=== PATIENT | male | born 1975 | race Caucasian/White ===

== ENCOUNTER 2017-08-22 11:03 | Inpatient (IN) | payer OTHER ==
[~2017-08-22] VITALS: Ht 175.3 cm; Wt 75.8 kg
[2017-08-22 11:59] LABS: BASOPHILS ABSOLUTE AUTO 0.06 K/mm3 (0.00-0.23); BASOPHILS PERCENT AUTO 0 % (0-2); EOSINOPHILS ABSOLUTE AUTO 0.01 K/mm3 (0.00-0.68); EOSINOPHILS PERCENT AUTO 0 % (0-6); Hematocrit 42.7 % (37.0-53.0); Hemoglobin 14.5 g/dL (13.5-17.5); IMMATURE GRAN ABSOLUTE AUTO 0.08 K/mm3 (0.00-0.10); IMMATURE GRAN PERCENT AUTO 1 % (0-1); LYMPHOCYTES ABSOLUTE AUTO 1.48 K/mm3 (0.84-5.20); LYMPHOCYTES PERCENT AUTO 9 % (21-46); MONOCYTES ABSOLUTE AUTO 1.34 K/mm3 (0.16-1.47); MONOCYTES PERCENT AUTO 8 % (4-13); Mean Corpuscular Volume 91 fL (80-100); Mean Platelet Volume 9.7 fL (9.1-12.4); NEUTROPHILS PERCENT AUTO 83 % (41-73); Platelet Count 392 K/mm3 (150-400); RDW Coefficient Variation 12.5 % (11.7-14.2); RDW Standard Deviation 42.1 fL (35.1-46.3); Red Blood Cell Count 4.67 M/mm3 (4.30-5.90); White Blood Cell Count 17.37 K/mm3 (4.00-11.30)
[2017-08-22 12:27] LABS: Alanine Aminotransfer (ALT/SGP 17 U/L (12-78); Albumin, Blood 3.9 g/dL (3.4-5.0); Alk Phos 62 U/L (50-136); Anion Gap 7 mmol/L (6-16); Aspartate Aminotrans (AST/SGOT 11 U/L (12-37); Bilirubin, Total 0.6 mg/dL (0.1-1.0); Blood Urea Nitrogen 22 mg/dL (8-24); Bun/Creatinine Ratio 21.8 (12.0-20.0); CO2, Blood 27 mmol/L (21-32); Calcium, Blood 8.9 mg/dL (8.5-10.1); Chloride, Blood 100 mmol/L (98-108); Creatinine, Blood 1.01 mg/dL (0.60-1.20); Ethanol (Alcohol), Blood, Med <3 mg/dL; Globulin, Blood 3.9 g/dL (2.2-4.0); Glomerular Filtration Rate >60 (60-); Glucose, Blood 316 mg/dL (70-99); Potassium, Blood 4.3 mmol/L (3.5-5.5); Sodium, Blood 134 mmol/L (136-145); Total Protein, Blood 7.8 g/dL (6.4-8.2)
[2017-08-22 12:31] LABS: U Amphetamine Screen Not Detected; U Barbituate Screen Not Detected; U Benzodiazapine Screen Not Detected; U Buprenorphine Screen Not Detected; U Cannabinoids Screen Not Detected; U Cocaine Screen Not Detected; U Methadone Screen Not Detected; U Methamphetamine Screen Not Detected; U Opiates Screen Not Detected; U Oxycodone Screen Not Detected; U Phencyclidine Screen Not Detected; U Propoxyphene Screen Not Detected
[2017-08-22 14:36] LABS: Glucose, CSF 103 mg/dL (40-70)
[2017-08-22 15:07] LABS: RBC Count, CSF 258 /mm3 (0-0)
[2017-08-22 15:14] LABS: WBC Count, CSF 6 /mm3 (0-5)
[2017-08-22 15:16] LABS: Appearance, CSF Clear (Clear); Color, CSF No Color (No Color); RBC Count, CSF 0 /mm3 (0-0)
[2017-08-22 15:17] LABS: Appearance, CSF Clear (Clear); Color, CSF Red (No Color); WBC Count, CSF 0 /mm3 (0-5)
[2017-08-22 15:36] LABS: Lymphocytes, CSF 95 % (40-80); Monocytes, CSF 4 % (15-45); Neutrophils, CSF 1 % (0-6)
[2017-08-22] MEDS ORDERED: Novolin R100 UNIT/M SC (16:08)
[2017-08-22] MEDS ORDERED: Humulin N100 UNIT/1 (16:09)
[2017-08-22 20:07] LABS: Source, Urine Clean Catch
[2017-08-22 20:15] LABS: Bilirubin, Urine Neg (Neg); Blood, Urine Neg (Neg); Glucose Qualitative, Urine 4+ (Neg); Ketones, Urine 3+ (Neg); Leukocyte Esterase, Urine Neg (Neg); Nitrite, Urine Neg (Neg); Protein, Urine Neg (Neg); Specific Gravity, Urine 1.015 (1.003-1.022); Urobilinogen, Urine NORM (Normal)
[2017-08-22 20:20] LABS: Appearance, Urine Clear (Clear); Color, Urine Yellow (P-Yellow)
[2017-08-22 22:09] LABS: Glucose, Blood 620 mg/dL (70-99)
[2017-08-23 05:17] LABS: BASOPHILS ABSOLUTE AUTO 0.11 K/mm3 (0.00-0.23); BASOPHILS PERCENT AUTO 1 % (0-2); EOSINOPHILS PERCENT AUTO 1 % (0-6); Hematocrit 42.4 % (37.0-53.0); Hemoglobin 14.2 g/dL (13.5-17.5); IMMATURE GRAN ABSOLUTE AUTO 0.08 K/mm3 (0.00-0.10); IMMATURE GRAN PERCENT AUTO 1 % (0-1); LYMPHOCYTES ABSOLUTE AUTO 2.49 K/mm3 (0.84-5.20); LYMPHOCYTES PERCENT AUTO 17 % (21-46); MONOCYTES ABSOLUTE AUTO 1.48 K/mm3 (0.16-1.47); MONOCYTES PERCENT AUTO 10 % (4-13); Mean Corpuscular HGB 30.5 pg (26.0-34.0); Mean Corpuscular HGB Conc 33.5 g/dL (31.5-36.5); Mean Corpuscular Volume 91 fL (80-100); Mean Platelet Volume 9.7 fL (9.1-12.4); NEUTROPHILS ABSOLUTE AUTO 10.41 K/mm3 (1.96-9.15); NEUTROPHILS PERCENT AUTO 71 % (41-73); Platelet Count 391 K/mm3 (150-400); RDW Coefficient Variation 12.6 % (11.7-14.2); Red Blood Cell Count 4.65 M/mm3 (4.30-5.90); White Blood Cell Count 14.67 K/mm3 (4.00-11.30)
[2017-08-23 05:36] LABS: Anion Gap 13 mmol/L (6-16); Blood Urea Nitrogen 23 mg/dL (8-24); Bun/Creatinine Ratio 21.9 (12.0-20.0); CO2, Blood 19 mmol/L (21-32); Calcium, Blood 8.5 mg/dL (8.5-10.1); Chloride, Blood 100 mmol/L (98-108); Creatinine, Blood 1.05 mg/dL (0.60-1.20); Glomerular Filtration Rate >60 (60-); Glucose, Blood 345 mg/dL (70-99); Potassium, Blood 4.8 mmol/L (3.5-5.5); Sodium, Blood 132 mmol/L (136-145)
== END 2017-08-23 16:01 | disposition left against medical advice (07) | DRG 98 ==
LOC: ER 11:03 → MEDS 17:10
PROVIDERS: Emergency Medicine; Internal Medicine; Nurse Practitioner Acute Care; Physician Assistant
DX: G04.90 Encephalitis and encephalomyelitis, unspecified (principal); R47.01 Aphasia; R65.10 Systemic inflammatory response syndrome (SIRS) of non-infectious origin without acute organ dysfunction; E87.1 Hypo-osmolality and hyponatremia; E10.9 Type 1 diabetes mellitus without complications; Z79.4 Long term (current) use of insulin; Z87.891 Personal history of nicotine dependence
CPT/HCPCS: 36415; 62270; 70450; 70553; 80048; 80053; 81003; 82607; 82945; 82947; 84145; 84157; 84443; 85025; 89051; 92610; 93005; 93010; 96360; 97162; 99285-25; A9577; G0480; G8978; G8979; G8996; G8997; G8998; J1650; J1815; J7030; J7120

== ENCOUNTER → 2017-08-25 | Outpatient (CLI) | payer OTHER ==
[~2017-08-25] MED LIST: Humulin N100 UNIT/1; Novolin R100 UNIT/M SC
== END | disposition home or self-care (01) ==
LOC: LAB 16:12 → LAB SHORT 16:12
DX: L02.91 Cutaneous abscess, unspecified (principal)
CPT/HCPCS: 87070; 87075; 87205

== ENCOUNTER 2017-10-15 16:39 | Emergency (ER) | payer OTHER ==
[~2017-10-15] VITALS: Ht 180.3 cm; Wt 81.7 kg
[2017-10-15 17:05] LABS: Calcium, Ionized (POC) 1.07 mmol/L (1.10-1.46); Chloride (POC) 101 mmol/L (98-108); Creatinine (POC) 1.1 mg/dL (0.8-1.3); Glucose (ISTAT POC) 287 mg/dL (70-99); Hemoglobin (POC) 17.7 g/dL (13.5-17.5); Potassium (POC) 4.4 mmol/L (3.5-5.5); Sodium (POC) 141 mmol/L (135-148); Total CO2 (POC) 25 mmol/L (21-32)
[2017-10-15 17:19] LABS: BASOPHILS ABSOLUTE AUTO 0.14 K/mm3 (0.00-0.23); BASOPHILS PERCENT AUTO 1 % (0-2); EOSINOPHILS ABSOLUTE AUTO 0.12 K/mm3 (0.00-0.68); EOSINOPHILS PERCENT AUTO 1 % (0-6); Hematocrit 50.1 % (37.0-53.0); Hemoglobin 16.7 g/dL (13.5-17.5); IMMATURE GRAN ABSOLUTE AUTO 0.13 K/mm3 (0.00-0.10); IMMATURE GRAN PERCENT AUTO 1 % (0-1); LYMPHOCYTES ABSOLUTE AUTO 2.62 K/mm3 (0.84-5.20); LYMPHOCYTES PERCENT AUTO 14 % (21-46); MONOCYTES ABSOLUTE AUTO 1.05 K/mm3 (0.16-1.47); MONOCYTES PERCENT AUTO 6 % (4-13); Mean Corpuscular HGB 30.8 pg (26.0-34.0); Mean Corpuscular HGB Conc 33.3 g/dL (31.5-36.5); Mean Corpuscular Volume 92 fL (80-100); NEUTROPHILS ABSOLUTE AUTO 14.51 K/mm3 (1.96-9.15); NEUTROPHILS PERCENT AUTO 78 % (41-73); Platelet Count 454 K/mm3 (150-400); RDW Coefficient Variation 12.9 % (11.7-14.2); Red Blood Cell Count 5.42 M/mm3 (4.30-5.90); White Blood Cell Count 18.57 K/mm3 (4.00-11.30)
[2017-10-15 17:33] LABS: Alanine Aminotransfer (ALT/SGP 24 U/L (12-78); Albumin, Blood 4.6 g/dL (3.4-5.0); Alk Phos 73 U/L (50-136); Anion Gap 9 mmol/L (6-16); Aspartate Aminotrans (AST/SGOT 23 U/L (12-37); Bilirubin, Total 0.8 mg/dL (0.1-1.0); Blood Urea Nitrogen 23 mg/dL (8-24); Bun/Creatinine Ratio 20.7 (12.0-20.0); CO2, Blood 26 mmol/L (21-32); Calcium, Blood 9.8 mg/dL (8.5-10.1); Chloride, Blood 101 mmol/L (98-108); Creatinine, Blood 1.11 mg/dL (0.60-1.20); Globulin, Blood 4.6 g/dL (2.2-4.0); Glomerular Filtration Rate >60 (60-); Glucose, Blood 285 mg/dL (70-99); Potassium, Blood 4.6 mmol/L (3.5-5.5); Sodium, Blood 136 mmol/L (136-145); Total Protein, Blood 9.2 g/dL (6.4-8.2)
[2017-10-15 18:35] LABS: Source, Urine Clean Catch
[2017-10-15 18:39] LABS: Bilirubin, Urine Neg (Neg); Blood, Urine 3+ (Neg); Glucose Qualitative, Urine 4+ (Neg); Ketones, Urine Neg (Neg); Leukocyte Esterase, Urine Neg (Neg); Nitrite, Urine Neg (Neg); Protein, Urine 1+ (Neg); Urobilinogen, Urine NORM (Normal)
[2017-10-15 18:47] LABS: Appearance, Urine Clear (Clear); Color, Urine Yellow (P-Yellow)
[2017-10-15 18:48] LABS: Bacteria Rare /hpf; Red Blood Cells, Urine 0-2 /hpf (0-2); Squamous Epithelial Cells Not Seen /hpf (Few); White Blood Cells, Urine 0-2 /hpf (0-5)
[2017-10-15 18:50] LABS: U Amphetamine Screen Not Detected; U Barbituate Screen Not Detected; U Benzodiazapine Screen Not Detected; U Buprenorphine Screen Not Detected; U Cannabinoids Screen Not Detected; U Cocaine Screen Not Detected; U Methadone Screen Not Detected; U Methamphetamine Screen Not Detected; U Opiates Screen Not Detected; U Oxycodone Screen Not Detected; U Phencyclidine Screen Not Detected; U Propoxyphene Screen Not Detected
[2017-10-15 18:57] LABS: Source, Urine Catheter
[2017-10-15 19:00] LABS: Bilirubin, Urine Neg (Neg); Blood, Urine Neg (Neg); Glucose Qualitative, Urine 4+ (Neg); Ketones, Urine Neg (Neg); Leukocyte Esterase, Urine Neg (Neg); Nitrite, Urine Neg (Neg); Protein, Urine Neg (Neg); Urobilinogen, Urine NORM (Normal)
[2017-10-15 19:05] LABS: Appearance, Urine Clear (Clear); Color, Urine Yellow (P-Yellow)
== END 2017-10-15 20:02 | disposition short-term general hospital (02) ==
LOC: ER 16:39
PROVIDERS: Emergency Medicine
DX: K59.00 Constipation, unspecified (principal); R33.9 Retention of urine, unspecified; E11.9 Type 2 diabetes mellitus without complications; Z79.4 Long term (current) use of insulin; Z87.891 Personal history of nicotine dependence
CPT/HCPCS: 36415; 51702; 51798; 74177; 80047; 80053; 81001; 81003; 83690; 85014; 85025; 93005; 93010; 96365; 96375; 99285-25; G0480; J2405; J2543; J2765; J3010; J3370; J7050; Q9967

== ENCOUNTER 2019-03-19 13:27 | Emergency (ER) | payer OTHER ==
[~2019-03-19] VITALS: Ht 180.3 cm; Wt 81.7 kg
[2019-03-19 14:31] LABS: BASOPHILS ABSOLUTE AUTO 0.11 K/mm3 (0.00-0.23); BASOPHILS PERCENT AUTO 1 % (0-2); EOSINOPHILS ABSOLUTE AUTO 0.07 K/mm3 (0.00-0.68); EOSINOPHILS PERCENT AUTO 1 % (0-6); Hemoglobin 15.1 g/dL (13.5-17.5); IMMATURE GRAN ABSOLUTE AUTO 0.06 K/mm3 (0.00-0.10); IMMATURE GRAN PERCENT AUTO 0 % (0-1); LYMPHOCYTES ABSOLUTE AUTO 1.92 K/mm3 (0.84-5.20); LYMPHOCYTES PERCENT AUTO 14 % (21-46); MONOCYTES ABSOLUTE AUTO 0.99 K/mm3 (0.16-1.47); MONOCYTES PERCENT AUTO 7 % (4-13); Mean Corpuscular HGB 31.3 pg (26.0-34.0); Mean Corpuscular HGB Conc 33.6 g/dL (31.5-36.5); Mean Corpuscular Volume 93 fL (80-100); Mean Platelet Volume 10.3 fL (9.1-12.4); NEUTROPHILS ABSOLUTE AUTO 10.34 K/mm3 (1.96-9.15); NEUTROPHILS PERCENT AUTO 77 % (41-73); Platelet Count 481 K/mm3 (150-400); RDW Coefficient Variation 12.3 % (11.7-14.2); RDW Standard Deviation 42.5 fL (35.1-46.3); Red Blood Cell Count 4.83 M/mm3 (4.30-5.90); White Blood Cell Count 13.49 K/mm3 (4.00-11.30)
[2019-03-19 15:02] LABS: Alanine Aminotransfer (ALT/SGP 24 U/L (12-78); Albumin, Blood 4.1 g/dL (3.4-5.0); Albumin/Globulin Ratio 1.1 (0.8-1.8); Alk Phos 57 U/L (50-136); Anion Gap 9 mmol/L (6-16); Aspartate Aminotrans (AST/SGOT 16 U/L (12-37); Bilirubin, Total 0.8 mg/dL (0.1-1.0); Blood Urea Nitrogen 20 mg/dL (8-24); Bun/Creatinine Ratio 20.6 (12.0-20.0); CO2, Blood 23 mmol/L (21-32); Calcium, Blood 9.5 mg/dL (8.5-10.1); Chloride, Blood 101 mmol/L (98-108); Creatinine, Blood 0.97 mg/dL (0.60-1.20); Globulin, Blood 3.8 g/dL (2.2-4.0); Glomerular Filtration Rate >60 (60-); Glucose, Blood 322 mg/dL (70-99); Potassium, Blood 4.2 mmol/L (3.5-5.5); Sodium, Blood 133 mmol/L (136-145); Total Protein, Blood 7.9 g/dL (6.4-8.2)
== END 2019-03-19 15:46 | disposition home or self-care (01) ==
LOC: ER 13:27
PROVIDERS: Physician Assistant
DX: E11.65 Type 2 diabetes mellitus with hyperglycemia (principal)
CPT/HCPCS: 36415; 70450; 80053; 82947; 85025; 99284-25; J1815

== ENCOUNTER → 2021-10-24 | Outpatient (CLI) | payer OTHER ==
[2021-10-24 19:37] LABS: BASOPHILS ABSOLUTE AUTO 0.06 K/mm3 (0.00-0.23); BASOPHILS PERCENT AUTO 1 % (0-2); EOSINOPHILS ABSOLUTE AUTO 0.25 K/mm3 (0.00-0.68); EOSINOPHILS PERCENT AUTO 3 % (0-6); Hematocrit 43.9 % (37.0-53.0); Hemoglobin 14.5 g/dL (13.5-17.5); IMMATURE GRAN ABSOLUTE AUTO 0.01 K/mm3 (0.00-0.10); IMMATURE GRAN PERCENT AUTO 0 % (0-1); LYMPHOCYTES PERCENT AUTO 19 % (21-46); MONOCYTES ABSOLUTE AUTO 0.83 K/mm3 (0.16-1.47); MONOCYTES PERCENT AUTO 11 % (4-13); Mean Corpuscular HGB 30.9 pg (26.0-34.0); Mean Corpuscular Volume 94 fL (80-100); Mean Platelet Volume 10.6 fL (9.1-12.4); NEUTROPHILS ABSOLUTE AUTO 4.92 K/mm3 (1.96-9.15); NEUTROPHILS PERCENT AUTO 66 % (41-73); Platelet Count 334 K/mm3 (150-400); Red Blood Cell Count 4.69 M/mm3 (4.30-5.90); White Blood Cell Count 7.47 K/mm3 (4.00-11.30)
[2021-10-24 19:47] LABS: Albumin, Blood 3.8 g/dL (3.4-5.0); Albumin/Globulin Ratio 1.1 (0.8-1.8); Bilirubin, Total 0.2 mg/dL (0.1-1.0); Bun/Creatinine Ratio 19.8 (12.0-20.0); Calcium, Blood 9.3 mg/dL (8.5-10.1); Creatinine, Blood 0.96 mg/dL (0.60-1.20); Globulin, Blood 3.6 g/dL (2.2-4.0); Potassium, Blood 4.2 mmol/L (3.5-5.5); Total Protein, Blood 7.4 g/dL (6.4-8.2)
[2021-10-27 01:10] LABS: CHLAMYDIA TRACHOMATIS, NAA Negative (Negative)
== END | disposition home or self-care (01) ==
LOC: LAB SHORT 17:46 → LAB 17:46
PROVIDERS: Nurse Practitioner
DX: Z11.59 Encounter for screening for other viral diseases (principal); R21 Rash and other nonspecific skin eruption
CPT/HCPCS: 80053; 85025; 85651; 86592; 86803

== ENCOUNTER 2022-10-31 12:16 | Observation (INO) | payer OTHER ==
[2022-10-31] VITALS (12 sets, daily range): BP systolic 102–136; BP diastolic 52–68
[~2022-10-31] VITALS: Ht 177.8 cm; Wt 82.9 kg
[2022-10-31 13:04] LABS: Base Excess Venous -14.5 mmol/L; Bicarbonate Venous 14.4 mmol/L (24.0-30.0); PCO2 Venous 28.3 mmHg (38-42); pH Blood Venous 7.26 (7.34-7.37)
[2022-10-31 13:11] LABS: BASOPHILS ABSOLUTE AUTO 0.06 K/mm3 (0.00-0.23); BASOPHILS PERCENT AUTO 0 % (0-2); EOSINOPHILS ABSOLUTE AUTO 0.01 K/mm3 (0.00-0.68); EOSINOPHILS PERCENT AUTO 0 % (0-6); Hematocrit 34.7 % (37.0-53.0); Hemoglobin 11.2 g/dL (13.5-17.5); IMMATURE GRAN ABSOLUTE AUTO 0.17 K/mm3 (0.00-0.10); IMMATURE GRAN PERCENT AUTO 1 % (0-1); LYMPHOCYTES ABSOLUTE AUTO 0.57 K/mm3 (0.84-5.20); LYMPHOCYTES PERCENT AUTO 3 % (21-46); MONOCYTES PERCENT AUTO 10 % (4-13); Mean Corpuscular HGB 31.5 pg (26.0-34.0); Mean Corpuscular HGB Conc 32.3 g/dL (31.5-36.5); Mean Corpuscular Volume 98 fL (80-100); Mean Platelet Volume 10.8 fL (9.1-12.4); NEUTROPHILS ABSOLUTE AUTO 15.87 K/mm3 (1.96-9.15); NEUTROPHILS PERCENT AUTO 86 % (41-73); Platelet Count 301 K/mm3 (150-400); RDW Coefficient Variation 13.8 % (11.7-14.2); RDW Standard Deviation 49.9 fL (35.1-46.3); Red Blood Cell Count 3.56 M/mm3 (4.30-5.90); White Blood Cell Count 18.48 K/mm3 (4.00-11.30)
[2022-10-31 13:32] LABS: Source, Urine Straight Cath
[2022-10-31 13:46] LABS: Bilirubin, Urine Neg (Neg); Blood, Urine Neg (Neg); Color, Urine Yellow (P-Yellow); Glucose Qualitative, Urine 4+ (Neg); Ketones, Urine 3+ (Neg); Leukocyte Esterase, Urine Neg (Neg); Nitrite, Urine Neg (Neg); Protein, Urine Neg (Neg); Urobilinogen, Urine NORM (Normal)
[2022-10-31 14:03] LABS: Magnesium, Blood 2.1 mg/dL (1.6-2.4)
[2022-10-31 14:04] LABS: Appearance, Urine Hazy (Clear)
[2022-10-31 14:05] LABS: Albumin, Blood 3.4 g/dL (3.4-5.0); Albumin/Globulin Ratio 1.1 (0.8-1.8); Bun/Creatinine Ratio 23.1 (12.0-20.0); Calcium, Blood 8.4 mg/dL (8.5-10.1); Creatinine, Blood 1.82 mg/dL (0.60-1.20); Potassium, Blood 5.8 mmol/L (3.5-5.5); Total Protein, Blood 6.4 g/dL (6.4-8.2)
[2022-10-31 14:05] LABS: Bacteria Many /hpf; Red Blood Cells, Urine 0-2 /hpf (0-2); Squamous Epithelial Cells Rare /hpf (Few)
[2022-10-31 16:17] LABS: Bun/Creatinine Ratio 25.3 (12.0-20.0); Calcium, Blood 8.8 mg/dL (8.5-10.1); Creatinine, Blood 1.7 mg/dL (0.60-1.20); Potassium, Blood 5.3 mmol/L (3.5-5.5)
[2022-10-31 17:35] LABS: Glucose, Blood 724 mg/dL (70-99)
--- NOTE | 2022-10-31 19:22 | NUR ---
ARRIVAL TO UNIT: PATIENT ARRIVED TO UNIT AT 1807. PATIENT ORIENTED TO PLACE, SELF, REASON FOR ADMISSION AND FOLLOWING DIRECTIONS. PATIENT INDEPENDENTLY MOVES ALL FOUR EXTREMITIES. PATIENT STABLE ON ROOM AIR WITH SP02 >92%. PATIENT APPEARS COMFORTABLE. PATIENT DENIES PAIN OR NAUSEA. PATIENT ABLE TO PERFORM FACIAL CLEANSING AND ORAL CARE INDEPENDENTLY WITH SET UP ASSIST. PERFORMED BEDSIDE CBG. DISCUSSED RESULTS WITH POULTRY PINNER AND RESTARTED INSULIN DRIP AT 4 UNITS/HOUR. BED ALARM ON. SINUS TACH ON THE MONITOR IN THE 120S. BPS STABLE.
[2022-10-31] MEDS ORDERED: Viagra100 MG PO (19:45)
[2022-10-31] MEDS ORDERED: MS MEDICATION PO (19:46)
--- NOTE | 2022-10-31 20:00 | NUR ---
ASSUMED CARE OF PT AT 1900. REPORT RECEIVED AT BEDSIDE. PT PRESENTS ON INSULIN DRIP AT 4 UNITS/HOUR. PT ABLE TO ANSWER MOST OF HIS QUESTIONS FOR ADMISSION INTERVIEW. WAS UNCLEAR ON SOME OF HIS MEDICATIONS THAT HE TAKES. PT DID EXPRESS THAT HE FEELS THAT HIS FAMILY IS TAKING HIS MONEY, AND HAS SOME DISTRUST. WILL PLACE SOCIAL SERVICE ORDER TO EVALUATE HOME SITUATION. WILL REVIEW CHART AND PLAN OF CARE FOR THIS PT.
[2022-10-31] MEDS ORDERED: ALFUZOSIN HCL10 MG PO (20:31)
[2022-10-31] MEDS ORDERED: Lisinopril2.5 MG PO (20:32)
[2022-10-31] MEDS ORDERED: ALFU10 PO (20:35)
[2022-10-31 20:39] LABS: Bun/Creatinine Ratio 23.6 (12.0-20.0); Calcium, Blood 8.4 mg/dL (8.5-10.1); Creatinine, Blood 1.48 mg/dL (0.60-1.20); Potassium, Blood 4.5 mmol/L (3.5-5.5)
[2022-10-31 21:26] LABS: Source, Urine Foley catheter
[2022-10-31 21:31] LABS: Appearance, Urine Clear (Clear); Bilirubin, Urine Neg (Neg); Blood, Urine 1+ (Neg); Glucose Qualitative, Urine 4+ (Neg); Ketones, Urine 4+ (Neg); Leukocyte Esterase, Urine Neg (Neg); Nitrite, Urine Neg (Neg); Protein, Urine Neg (Neg); Specific Gravity, Urine 1.015 (1.003-1.022); Urobilinogen, Urine NORM (Normal)
[2022-10-31 21:40] LABS: Color, Urine Pale Yellow (P-Yellow)
[2022-10-31 21:42] LABS: Bacteria Few /hpf; Red Blood Cells, Urine 0-2 /hpf (0-2); Squamous Epithelial Cells Few /hpf (Few)
[2022-10-31] MEDS ORDERED: INSULANI SC (21:47)
[2022-10-31] MEDS ORDERED: HUMALOG KW100 UNIT/1 SC (21:49)
[2022-10-31] MEDS ORDERED: DIMETHYL FUMAR240 MG PO (21:53)
--- NOTE | 2022-10-31 22:19 | NUR ---
CALL MADE TO [facility]URE[facility] VELARDE WITH LABS. ORDERS RECEIVED TO TRANSITION PATIENT OFF INSULIN DRIP. ORDERS PLACED.
[2022-11-01] VITALS: BP 116/63
[2022-11-01 01:00] VITALS: BP 128/66
[2022-11-01 04:40] LABS: BASOPHILS ABSOLUTE AUTO 0.06 K/mm3 (0.00-0.23); BASOPHILS PERCENT AUTO 0 % (0-2); EOSINOPHILS ABSOLUTE AUTO 0.01 K/mm3 (0.00-0.68); EOSINOPHILS PERCENT AUTO 0 % (0-6); Hematocrit 32.9 % (37.0-53.0); Hemoglobin 11.3 g/dL (13.5-17.5); IMMATURE GRAN ABSOLUTE AUTO 0.06 K/mm3 (0.00-0.10); IMMATURE GRAN PERCENT AUTO 0 % (0-1); LYMPHOCYTES ABSOLUTE AUTO 1.23 K/mm3 (0.84-5.20); LYMPHOCYTES PERCENT AUTO 9 % (21-46); MONOCYTES ABSOLUTE AUTO 1.49 K/mm3 (0.16-1.47); MONOCYTES PERCENT AUTO 10 % (4-13); Mean Corpuscular HGB 31.7 pg (26.0-34.0); Mean Corpuscular HGB Conc 34.3 g/dL (31.5-36.5); Mean Platelet Volume 9.7 fL (9.1-12.4); NEUTROPHILS PERCENT AUTO 80 % (41-73); Platelet Count 301 K/mm3 (150-400); RDW Coefficient Variation 13.6 % (11.7-14.2); RDW Standard Deviation 46.2 fL (35.1-46.3); Red Blood Cell Count 3.57 M/mm3 (4.30-5.90); White Blood Cell Count 14.35 K/mm3 (4.00-11.30)
[2022-11-01 04:54] LABS: Mean Corpuscular Volume 92 fL (80-100)
[2022-11-01 05:00] LABS: Albumin/Globulin Ratio 0.9 (0.8-1.8); Bilirubin, Total 0.5 mg/dL (0.1-1.0); Bun/Creatinine Ratio 21.5 (12.0-20.0); Calcium, Blood 8.2 mg/dL (8.5-10.1); Creatinine, Blood 1.21 mg/dL (0.60-1.20); Globulin, Blood 3.2 g/dL (2.2-4.0); Potassium, Blood 3.7 mmol/L (3.5-5.5); Total Protein, Blood 6.2 g/dL (6.4-8.2)
[2022-11-01 05:22] VITALS: BP 117/71
--- NOTE | 2022-11-01 05:23 | NUR ---
PT STATUS CHANGED TO MEDICAL FLOOR WITHOUT TELEMENTRY. PT MADE AWARE AND HAS BEEN TRANSFERRED TO ROOM 337. LEAVING ICU 2 AT 0510. PT ABLE TO TRANSFER INTO WHEEL CHAIR FROM BED, AND ALL BELONGINGS SENT WITH PT. REPORT GIVEN TO LELO SAAB ALLOWED FOR QUESTIONS.
--- NOTE | 2022-11-01 06:31 | NUR ---
TRANSFER FROM ICU 2 @ 0515. PT ON 3L/NC. 1L LR @ 75 INFUSING IN RAC. PT HAS ALL BELONGINGS AND RX. ASSUMED CARE @ 3914.
[2022-11-01 08:01] VITALS: BP 113/55
[2022-11-01 15:29] VITALS: BP 142/70
[2022-11-01] MEDS ORDERED: AZIT500 PO (15:59)
--- NOTE | 2022-11-01 18:07 | NUR ---
DC- PT DC IN STABLE CONDITION AT 1710. PT LEFT WITH ALL BELONGINGS AND WAS BROUGHT DOWN TO HIS MOTHER PICKING HIM UP. PT BROUGHT DOWN IN WC. ALL DC INSTRUCTIONS AND PAPERWORK DISCUSSED W/PATIENT. THIS RN SPOKE WITH PT'S MOTHER OVER THE PHONE AND OFFERED TO GO OVER DC INSTRUCTIONS IN PERSON. MOTHER DECLINED. ALL DC PAPERWORK SIGNED. ALL QUESTIONS REGARDING DC INSTRUCTIONS ANSWERED.
== END 2022-11-01 17:18 | disposition home or self-care (01) ==
LOC: ER 12:16 → ICUE 12:17 → ER 17:52 → ICUE 18:05 → MEDS 11-01 05:17 → ENPENDDIS 11-01 12:25 → MEDS 11-01 17:18
PROVIDERS: Student in an Organized Health Care Education/Training Program; ADMIT Hospitalist
DX: E10.10 Type 1 diabetes mellitus with ketoacidosis without coma (principal); R65.10 Systemic inflammatory response syndrome (SIRS) of non-infectious origin without acute organ dysfunction; E87.1 Hypo-osmolality and hyponatremia; E87.5 Hyperkalemia; R56.9 Unspecified convulsions; Z87.891 Personal history of nicotine dependence; Z79.4 Long term (current) use of insulin
CPT/HCPCS: 51701; 51702; 51798; 70450; 71045; 80048; 80053; 81001; 82010; 82803; 82947; 83605; 83735; 84145; 84146; 85025; 87040; 93005; 93010; 94761; 96361; 96365; 96366; 96368; 96372; 96375; 96376; 99285-25; A9270; G0378; J0456; J0696; J1650; J1815; J2765; J7030; J7050; J7120

== ENCOUNTER → 2023-03-18 | Outpatient (CLI) | payer OTHER ==
[~2023-03-18] MED LIST changes: +ALFU10 PO; +ALFUZOSIN HCL10 MG PO; +AZIT500 PO; +DIMETHYL FUMAR240 MG PO; +HUMALOG KW100 UNIT/1 SC; +INSULANI SC; +Lisinopril2.5 MG PO; +MS MEDICATION PO; +Viagra100 MG PO
[2023-03-18 17:36] LABS: BASOPHILS ABSOLUTE AUTO 0.07 K/mm3 (0.00-0.23); BASOPHILS PERCENT AUTO 1 % (0-2); EOSINOPHILS ABSOLUTE AUTO 0.24 K/mm3 (0.00-0.68); EOSINOPHILS PERCENT AUTO 2 % (0-6); Hematocrit 41.8 % (37.0-53.0); Hemoglobin 13.9 g/dL (13.5-17.5); IMMATURE GRAN ABSOLUTE AUTO 0.05 K/mm3 (0.00-0.10); IMMATURE GRAN PERCENT AUTO 0 % (0-1); LYMPHOCYTES ABSOLUTE AUTO 0.66 K/mm3 (0.84-5.20); LYMPHOCYTES PERCENT AUTO 5 % (21-46); MONOCYTES ABSOLUTE AUTO 1.43 K/mm3 (0.16-1.47); MONOCYTES PERCENT AUTO 11 % (4-13); Mean Corpuscular HGB 31.2 pg (26.0-34.0); Mean Corpuscular HGB Conc 33.3 g/dL (31.5-36.5); Mean Corpuscular Volume 94 fL (80-100); Mean Platelet Volume 10.3 fL (9.1-12.4); NEUTROPHILS ABSOLUTE AUTO 11.19 K/mm3 (1.96-9.15); NEUTROPHILS PERCENT AUTO 82 % (41-73); Platelet Count 341 K/mm3 (150-400); RDW Coefficient Variation 12.8 % (11.7-14.2); RDW Standard Deviation 43.7 fL (35.1-46.3); Red Blood Cell Count 4.45 M/mm3 (4.30-5.90); White Blood Cell Count 13.64 K/mm3 (4.00-11.30)
[2023-03-18 18:07] LABS: CHOL/HDL RATIO 1.9; Cholesterol 137 mg/dL (50-200); HDL Cholesterol 73 mg/dL (>39); LDL/HDL RATIO 0.8; Low Density Lipoprotein Chol 56 mg/dL (0-110); Triglycerides 42 mg/dL (30-160); Very Low Density Lipoprot Chol 8 mg/dL (6-32)
[2023-03-18 18:18] LABS: Creatinine, Urine Random 84.1 mg/dL (27.00-270.00)
[2023-03-18 18:20] LABS: Microalb/Creat Ratio UR, Rand 342.449 mg/g (0.000-30.000)
[2023-03-20 09:12] LABS: A/G RATIO 2.1 (1.2-2.2); BILIRUBIN, TOTAL 0.5 mg/dL (0.0-1.2); CALCIUM, SERUM 10.2 mg/dL (8.7-10.2); CREATININE, SERUM 1.04 mg/dL (0.76-1.27); GLOBULIN, TOTAL 2.3 g/dL (1.5-4.5); POTASSIUM, SERUM 4.6 mmol/L (3.5-5.2); PROTEIN, TOTAL, SERUM 7.2 g/dL (6.0-8.5)
== END | disposition home or self-care (01) ==
LOC: LAB 12:30 → LAB SHORT 12:30
PROVIDERS: Family Medicine
DX: E10.69 Type 1 diabetes mellitus with other specified complication (principal)
CPT/HCPCS: 80053; 80061; 82043; 82570; 84443; 85025

== ENCOUNTER 2024-07-27 17:15 | Inpatient (IN) | payer OTHER ==
[~2024-07-27] VITALS: Ht 180.3 cm; Wt 97.0 kg
[2024-07-27 17:52] LABS: PCO2 Venous 31.5 mmHg (38-42); pH Blood Venous 7.44 (7.34-7.37)
[2024-07-27 17:56] LABS: BASOPHILS ABSOLUTE AUTO 0.04 K/mm3 (0.00-0.23); BASOPHILS PERCENT AUTO 0 % (0-2); EOSINOPHILS ABSOLUTE AUTO 0.01 K/mm3 (0.00-0.68); EOSINOPHILS PERCENT AUTO 0 % (0-6); Hemoglobin 12.2 g/dL (13.5-17.5); IMMATURE GRAN ABSOLUTE AUTO 0.05 K/mm3 (0.00-0.10); IMMATURE GRAN PERCENT AUTO 1 % (0-1); LYMPHOCYTES ABSOLUTE AUTO 0.66 K/mm3 (0.84-5.20); LYMPHOCYTES PERCENT AUTO 7 % (21-46); MONOCYTES ABSOLUTE AUTO 0.82 K/mm3 (0.16-1.47); MONOCYTES PERCENT AUTO 8 % (4-13); Mean Corpuscular HGB 30.7 pg (26.0-34.0); Mean Corpuscular HGB Conc 33.9 g/dL (31.5-36.5); Mean Corpuscular Volume 91 fL (80-100); Mean Platelet Volume 9.7 fL (9.1-12.4); NEUTROPHILS ABSOLUTE AUTO 8.59 K/mm3 (1.96-9.15); NEUTROPHILS PERCENT AUTO 84 % (41-73); Platelet Count 372 K/mm3 (150-400); RDW Coefficient Variation 14.1 % (11.7-14.2); Red Blood Cell Count 3.97 M/mm3 (4.30-5.90); White Blood Cell Count 10.17 K/mm3 (4.00-11.30)
[2024-07-27 18:26] LABS: Albumin, Blood 3.7 g/dL (3.4-5.0); Albumin/Globulin Ratio 1.1 (0.8-1.8); Bilirubin, Total 0.9 mg/dL (0.1-1.0); Bun/Creatinine Ratio 22.1 (12.0-20.0); Calcium, Blood 9.5 mg/dL (8.5-10.1); Creatinine, Blood 1.4 mg/dL (0.60-1.20); Globulin, Blood 3.3 g/dL (2.2-4.0); Potassium, Blood 4.3 mmol/L (3.5-5.5)
[2024-07-27] MEDS ORDERED: NS 1,000 ML IV SCH ×3 (20:20→22:50)
[2024-07-27] MEDS ORDERED: Ondansetron HCl 2 MG / ML 2ML Vial IV ONE (20:20)
[2024-07-27 20:47] LABS: Beta-hydroxybutyrate 15.3 mg/dL (0.2-2.8)
[2024-07-27 21:59] LABS: Source, Urine Clean Catch
[2024-07-27 22:05] LABS: Appearance, Urine Clear (Clear); Bilirubin, Urine Neg (Neg); Blood, Urine Neg (Neg); Color, Urine Yellow (P-Yellow); Glucose Qualitative, Urine 4+ (Neg); Ketones, Urine 3+ (Neg); Leukocyte Esterase, Urine 1+ (Neg); Nitrite, Urine Pos (Neg); Protein, Urine Neg (Neg); Urobilinogen, Urine NORM (Normal)
[2024-07-27 22:14] LABS: Bacteria Many /hpf; Red Blood Cells, Urine 0-2 /hpf (0-2); Renal Epithelial Rare /hpf (0-Rare); Squamous Epithelial Cells Few /hpf (Few); White Blood Cells, Urine 25-50 /hpf (0-5)
[2024-07-27 22:36] LABS: Base Excess Venous 2.4 mmol/L; Bicarbonate Venous 26.1 mmol/L (24.0-30.0); PCO2 Venous 41.8 mmHg (38-42); pH Blood Venous 7.42 (7.34-7.37)
[2024-07-27 22:38] LABS: Bicarbonate Venous 22.6 mmol/L (24.0-30.0)
[2024-07-27] MEDS ORDERED: FentaNYL Citrate 50 MCG/ML 2 ML Injection IV PRN (22:45)
[2024-07-27] MEDS ORDERED: Ondansetron HCl 2 MG / ML 2ML Vial IV PRN (22:50)
[2024-07-27] MEDS ORDERED: Metoclopramide HCl 5MG / ML 2ML Vial IV PRN (22:50)
[2024-07-27] MEDS ORDERED: Insulin Glargine-Yfgn 100 Unit/mL 3 ML SYR SC SCH (23:00)
[2024-07-27] MEDS ORDERED: Enoxaparin 40 MG/0.4 ML SYR SC SCH (23:00)
--- NOTE | 2024-07-27 23:00 | NUR ---
PT IS HERE VIA WHEELCHAIR. PT IS ABLE TO STAND AND PIVOT TO MEDICAL FLOOR BED. PT IS A&O X3, HOWEVER,PT IS UNABLE TO REMEMBER HIS MEDICATIONS HE TAKES, AND IS A LITTLE SLOW TO PROCESS. PT HAS A HISTORY OF MULTIPLE SCLEROSIS AND REPORTS HE SELF CATHS 3X - 4X A DAY. ANDREW PANG RN REPORTS CATHING PT AT 2200 TONIGHT. PT HAS A DEXTRAN MONITOR IN PLACE - PT IS REQUESTING TO HAVE FOOD HE CURRENTLY IN NPO. WILL FOLLOW WITH THE DRMary FOR A DIET ORDER. CALL LIGHT WITHIN REACH. BED IN LOW POSITION. BED ALARM ON FOR PT SAFETY.
[2024-07-27 23:04] VITALS: BP 122/54
[2024-07-27] MEDS ORDERED: CefTRIAXone Sodium 1,000 MG in NS 100 ML IV SCH (23:10)
--- NOTE | 2024-07-27 23:10 | NUR ---
descom, not dextran glucose monitoring pt.
--- NOTE | 2024-07-27 23:50 | NUR ---
US TECH HERE - SEE ORDERS. PT ATE 1/2 SANDWICH AND CRACKERS - BLOOD SUGAR NOW 118 PER HIS DEXTRAN GLUCOSE MONITOR.
[2024-07-27 23:52] LABS: Bun/Creatinine Ratio 20.5 (12.0-20.0); Calcium, Blood 9.3 mg/dL (8.5-10.1); Creatinine, Blood 1.27 mg/dL (0.60-1.20)
[2024-07-28] VITALS (14 sets, daily range): BP systolic 92–142; BP diastolic 54–124
--- NOTE | 2024-07-28 00:51 | NUR ---
SCD'S NOT NEEDED PER ORDER.
[2024-07-28] MEDS ORDERED: Insulin Glargine-Yfgn 100 Unit/mL 3 ML SYR SC ONE (04:20)
[2024-07-28 04:24] LABS: BASOPHILS ABSOLUTE AUTO 0.06 K/mm3 (0.00-0.23); BASOPHILS PERCENT AUTO 1 % (0-2); EOSINOPHILS ABSOLUTE AUTO 0.11 K/mm3 (0.00-0.68); EOSINOPHILS PERCENT AUTO 1 % (0-6); Hematocrit 35.1 % (37.0-53.0); Hemoglobin 11.6 g/dL (13.5-17.5); IMMATURE GRAN ABSOLUTE AUTO 0.05 K/mm3 (0.00-0.10); IMMATURE GRAN PERCENT AUTO 1 % (0-1); LYMPHOCYTES ABSOLUTE AUTO 0.74 K/mm3 (0.84-5.20); LYMPHOCYTES PERCENT AUTO 8 % (21-46); MONOCYTES ABSOLUTE AUTO 0.63 K/mm3 (0.16-1.47); MONOCYTES PERCENT AUTO 7 % (4-13); Mean Corpuscular Volume 94 fL (80-100); Mean Platelet Volume 9.7 fL (9.1-12.4); NEUTROPHILS ABSOLUTE AUTO 7.23 K/mm3 (1.96-9.15); NEUTROPHILS PERCENT AUTO 82 % (41-73); Platelet Count 301 K/mm3 (150-400); RDW Coefficient Variation 14.3 % (11.7-14.2); Red Blood Cell Count 3.74 M/mm3 (4.30-5.90); White Blood Cell Count 8.82 K/mm3 (4.00-11.30)
[2024-07-28 04:54] LABS: Albumin, Blood 3.3 g/dL (3.4-5.0); Albumin/Globulin Ratio 1.1 (0.8-1.8); Bilirubin, Total 0.9 mg/dL (0.1-1.0); Bun/Creatinine Ratio 19.9 (12.0-20.0); Calcium, Blood 8.8 mg/dL (8.5-10.1); Creatinine, Blood 1.51 mg/dL (0.60-1.20); Potassium, Blood 4.6 mmol/L (3.5-5.5); Total Protein, Blood 6.3 g/dL (6.4-8.2)
--- NOTE | 2024-07-28 05:16 | NUR ---
HOSPITALIST CONTACT PT BLOOD GLUCOSE 602, ANION GAP 18, CO2 17, AND PT HEART RATE ELEVATED. CALL TO HOSPITALIST TO ADVISE, REQUEST REVIEW OF LABS FOR DKA. NEW ORDER TO TRANSFER PT TO ICU TO RECEIVE INSULIN DRIP FOR DKA.
[2024-07-28] MEDS ORDERED: Insulin Human Regular 100 UNIT in NS 100 ML IV SCH (05:25)
--- NOTE | 2024-07-28 05:32 | NUR ---
REPORT GIVEN TO TYSON, CASSEROLE PREPARER - PT TO BE TRANSFERRED TO ICU 7.
--- NOTE | 2024-07-28 05:35 | NUR ---
PT TO ICU 7 WITH LIDA, RN, AND DANII KOENIG.
--- NOTE | 2024-07-28 06:28 | NUR ---
ASSUMED CARE PT CAME TO UNIT AROUND 0550 VIA BED W/ RN. PT IS ON ROOM AIR, LUNG SOUNDS CLEAR. 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 PT WAS VOMITTING ON ARRIVAL AND GIVEN REGLAN WHICH SEEMED TO HELP. PT IS NOW RESTING IN BED AND APPEARS COMFORTABLE. INSULIN GTT INITIATED AT 4U/HR. POWER GLIDE PLACED IN AMAN BY SANDEEP LIND. CALL LIGHT IN REACH, PT ORIENTED TO ROOM.
[2024-07-28] MEDS ORDERED: Insulin Human Lispro 100 Units/ML 3ML Syringe SC SCH ×4 (07:30→18:00)
[2024-07-28 07:32] LABS: Glucose, Blood 533 mg/dL (70-99)
[2024-07-28 08:12] LABS: Base Excess Venous -10.3 mmol/L; Bicarbonate Venous 17.2 mmol/L (24.0-30.0); PCO2 Venous 28.5 mmHg (38-42); pH Blood Venous 7.34 (7.34-7.37)
[2024-07-28] MEDS ORDERED: D5W-1/2NS 1,000 ML IV SCH (09:20)
[2024-07-28 12:02] LABS: Bun/Creatinine Ratio 19.8 (12.0-20.0); Calcium, Blood 8.8 mg/dL (8.5-10.1); Creatinine, Blood 1.26 mg/dL (0.60-1.20); Potassium, Blood 3.8 mmol/L (3.5-5.5)
[2024-07-28] MEDS ORDERED: Insulin Regular 100 UNIT/ML 10ML Vial SC SCH ×2 (16:00→16:30)
--- NOTE | 2024-07-28 16:37 | NUR ---
ICU DAYSHIFT SUMMARY PT HAS BEEN ALERT AND ORIENTED THIS SHIFT COMMUNICATING APPROPRIATELY W STAFF. PT MAINTAINING SPO2 >92% ON 2L NC. PT HAS HACKING PRODUCTIVE COUGH. MONITOR SHOWING SR/ST 90'S-100'S THIS SHIFT. BP WNL AND STABLE. PT AFEBRILE ALL SHIFT. PT VOIDING WELL THIS SHIFT USING THE BSC AND THE PUREWICK WHILE IN BED. PT TOLERATING PO INTAKE WELL. PT TO TRANSFER TO 301, REPORT GIVEN TO SHAWN LIND.
--- NOTE | 2024-07-28 17:21 | NUR ---
DAY SHIFT SUMMARY PT HAS BEEN ALERT AND ORIENTED THIS SHIFT COMMUNICATING APPROPRIATELY W STAFF. PT TRANSITIONED OFF OF THE INSULIN GTT THIS SHIFT AND IS TOLERATING PO INTAKE WELL. PT W NO NAUSEA OR EMESIS THIS SHIFT. PT W >850ML URINE RETAINED THIS AM SO KAMARA CATHETER PLACED PER MD ORDER. MONITOR SHOWING ST 110'S-120'S THIS SHIFT. BP WNL AND STABLE. PT AFEBRILE THIS SHIFT. 1600 BMP SHOWING INCREASED ANION GAP AND CREATININE LEVELS, DR. COLON CONTACTED AND NOTIFIED OF CURRENT CBG AND BMP LEVELS, NO NEW ORDERS WERE GIVEN AT THIS TIME. WILL REPORT TO ONCOMING RN.
[2024-07-28 17:23] LABS: Bun/Creatinine Ratio 17.6 (12.0-20.0); Calcium, Blood 8.5 mg/dL (8.5-10.1); Creatinine, Blood 1.36 mg/dL (0.60-1.20); Potassium, Blood 4.5 mmol/L (3.5-5.5)
[2024-07-28] MEDS ORDERED: Insulin Human Lispro 100 Units/ML 3ML Syringe SC ONE (17:50)
[2024-07-28] MEDS ORDERED: Lactated Ringer's 1,000 ML IV ONE (17:50)
--- NOTE | 2024-07-28 17:51 | NUR ---
UPDATE DR. CROWELL CONTACTED AND CONCERNS ABOUT PATIENTS BLOOD GLUCOSE AND PT'S LABS EXPRESSED. DR. CROWELL ORDERING ADDITIONAL INSULIN AND FLUIDS. WILL REPORT TO ONCOMING RN.
--- NOTE | 2024-07-28 18:05 | NUR ---
TOOK OVER CARE OF ANNETTE FOR REMAINDER OF SHIFT. CURRENTLY IN BED ON TELEPHONE. IV FLUID BOLUS STARTED, EXTRA DOSE OF INSULIN GIVEN PER ORDERS. PT DENIES ANY COMPLAINTS AT THIS TIME.
[2024-07-28] MEDS ORDERED: Insulin Glargine-Yfgn 100 Unit/mL 3 ML SYR SC SCH ×2 (20:00→22:00)
[2024-07-28 21:19] LABS: Bun/Creatinine Ratio 19.8 (12.0-20.0); Calcium, Blood 8.5 mg/dL (8.5-10.1); Creatinine, Blood 1.01 mg/dL (0.60-1.20)
--- NOTE | 2024-07-28 23:08 | NUR ---
ASSUMPTION OF CARE CARE OF PT ASSUMED FOLLOWING REPORT FROM DAY RN. PT LYING IN BED, ALERT AND ORIENTED AND IN NO APPARENT DISTRESS. VSS. TEMP 99.1- WILL MONITOR. PT DENIES CHEST PAIN/PRESSURE, SOB, AB PAIN, N/V. KAMARA IN PLACE AND PATENT. WILL REVIEW AND CONTINUE PLAN OF CARE.
[2024-07-29 03:35] LABS: BASOPHILS ABSOLUTE AUTO 0.09 K/mm3 (0.00-0.23); BASOPHILS PERCENT AUTO 1 % (0-2); EOSINOPHILS ABSOLUTE AUTO 0.23 K/mm3 (0.00-0.68); EOSINOPHILS PERCENT AUTO 3 % (0-6); Hematocrit 35.9 % (37.0-53.0); IMMATURE GRAN ABSOLUTE AUTO 0.04 K/mm3 (0.00-0.10); IMMATURE GRAN PERCENT AUTO 0 % (0-1); LYMPHOCYTES ABSOLUTE AUTO 1.31 K/mm3 (0.84-5.20); LYMPHOCYTES PERCENT AUTO 15 % (21-46); MONOCYTES ABSOLUTE AUTO 0.94 K/mm3 (0.16-1.47); MONOCYTES PERCENT AUTO 11 % (4-13); Mean Corpuscular HGB 30.9 pg (26.0-34.0); Mean Corpuscular HGB Conc 33.4 g/dL (31.5-36.5); Mean Corpuscular Volume 93 fL (80-100); Mean Platelet Volume 9.7 fL (9.1-12.4); NEUTROPHILS ABSOLUTE AUTO 6.31 K/mm3 (1.96-9.15); NEUTROPHILS PERCENT AUTO 71 % (41-73); Platelet Count 342 K/mm3 (150-400); RDW Coefficient Variation 14.4 % (11.7-14.2); RDW Standard Deviation 48.8 fL (35.1-46.3); Red Blood Cell Count 3.88 M/mm3 (4.30-5.90); White Blood Cell Count 8.92 K/mm3 (4.00-11.30)
[2024-07-29 03:59] LABS: Albumin, Blood 2.8 g/dL (3.4-5.0); Albumin/Globulin Ratio 0.8 (0.8-1.8); Bilirubin, Total 0.4 mg/dL (0.1-1.0); Bun/Creatinine Ratio 16.8 (12.0-20.0); Calcium, Blood 8.3 mg/dL (8.5-10.1); Creatinine, Blood 1.01 mg/dL (0.60-1.20); Globulin, Blood 3.3 g/dL (2.2-4.0); Potassium, Blood 3.8 mmol/L (3.5-5.5); Total Protein, Blood 6.1 g/dL (6.4-8.2)
[2024-07-29] MEDS ORDERED: Insulin Human Lispro 100 Units/ML 3ML Syringe SC ONE (05:25)
[2024-07-29 05:59] VITALS: BP 136/70
--- NOTE | 2024-07-29 07:18 | NUR ---
SHIFT SUMMARY PT SITTING ON TOILET ATTEMPTING A BOWEL MOVEMENT. PT AMBULATED WELL WITH ONE PERSON SBA. ALERT AND ORIENTED ALL SHIFT. PT DOES HAVE CHRONIC "BRAIN FOG" FROM MS THAT WAS DIAGNOSED 7 YEARS AGO. TMAX WAS 99.1 AT BEGINNING OF SHIFT. HR SINUS RHYTHM WITH RATE 80-110. BP STABLE, MAP > 75. > 95% SAT ON RA. NO CHEST PAIN/PRESSURE, SOB, AB PAIN, N/V. KAMARA IN PLACE DRAINING YELLOW URINE. 1.1 L OUTPUT ALL SHIFT. POC GLUCOSE WITH NORMAL RANGE, EXCEPT FOR ONE AT 0430 FOLLOWING EATING PUDDING AND FRUIT. PT GIVEN 2 UNITS OF SHORT ACTING. SHIFT REPORT GIVEN TO ONCOMING RN.
[2024-07-29 08:13] VITALS: BP 129/67
[2024-07-29] MEDS ORDERED: Insulin Glargine-Yfgn 100 Unit/mL 3 ML SYR SC SCH ×2 (09:00)
[2024-07-29] MEDS ORDERED: CEFP200 PO (10:48)
[2024-07-29 10:55] VITALS: BP 143/76
[2024-07-29] MEDS ORDERED: Insulin Human Lispro 100 Units/ML 3ML Syringe SC SCH (11:30)
--- NOTE | 2024-07-29 12:50 | NUR ---
DISCHARGE PT A/O X4. UP IN ROOM INDEP. PT SELF CATHETERIZES AT HOME. KAMARA WAS REMOVED THIS AM. HAS DEXCOM THAT MONITORS BLOOD SUGAR AND PT HAS BEEN MONITORING BLOOD SUGAR WHILE HERE. DISCHARGE INSTRUCTIONS GONE OVER WITH PT. PT TAKEN TO CAR IN WHEEL CHAIR WHERE MOM WAS WAITING. NO SIGN OF DISTRESS.
[2024-07-29] MEDS ORDERED: Insulin Regular 100 UNIT/ML 10ML Vial SC ONE (14:00)
== END 2024-07-29 12:50 | disposition home or self-care (01) | DRG 74 ==
LOC: ER 17:15 → MEDS 17:16 → ICUE 17:16 → MEDS 23:01 → ICUE 07-28 05:35
PROVIDERS: Emergency Medicine; Hospitalist; Student in an Organized Health Care Education/Training Program; ADMIT Internal Medicine
DX: E10.43 Type 1 diabetes mellitus with diabetic autonomic (poly)neuropathy (principal); N17.9 Acute kidney failure, unspecified; N39.0 Urinary tract infection, site not specified; E10.10 Type 1 diabetes mellitus with ketoacidosis without coma; K31.84 Gastroparesis; G35 Multiple sclerosis; R79.89 Other specified abnormal findings of blood chemistry; R00.0 Tachycardia, unspecified; I10 Essential (primary) hypertension; N40.1 Benign prostatic hyperplasia with lower urinary tract symptoms; R33.8 Other retention of urine; K59.00 Constipation, unspecified; Z79.811 Long term (current) use of aromatase inhibitors; Z79.4 Long term (current) use of insulin; Z79.85 Long-term (current) use of injectable non-insulin antidiabetic drugs; Z79.2 Long term (current) use of antibiotics; Z79.899 Other long term (current) drug therapy; Z87.891 Personal history of nicotine dependence
CPT/HCPCS: 36415; 51701; 51702; 76770; 80048; 80053; 81001; 82010; 82803; 82947; 83605; 83735; 83880; 83930; 84100; 85025; 87077; 87086; 87186; 93005; 93010; 96361; 96372; 96374; 96375; 96376; 99284-25; A9270; C1751; G0378; J0696; J1650; J1815; J2405; J2765; J7030; J7042; J7120

== ENCOUNTER → 2024-11-11 | Outpatient (CLI) | payer OTHER ==
[~2024-11-11] MED LIST changes: +CEFP200 PO
[2024-11-12 01:37] LABS: Creatinine, Urine Random 77.7 mg/dL (27.00-270.00); Microalb/Creat Ratio UR, Rand 35.779 mg/g (0.000-30.000); Microalbumin, Random Urine 27.8 mg/L (0.000-20.000)
== END ==
LOC: LAB 13:22 → LAB SHORT 13:22
PROVIDERS: Family Medicine
DX: Z79.4 Long term (current) use of insulin (principal)
CPT/HCPCS: 82043; 82570

== ENCOUNTER 2024-12-30 11:29 | Day surgery (SDC) | payer OTHER | END 2024-12-30 13:40 | disposition home or self-care (01) | LOC: ORSCSDS 11:29 | DX: E11.36 Type 2 diabetes mellitus with diabetic cataract (principal); Z53.8 Procedure and treatment not carried out for other reasons; H25.11 Age-related nuclear cataract, right eye; H25.811 Combined forms of age-related cataract, right eye ==

== ENCOUNTER 2024-12-30 13:39 | Emergency (ER) | payer OTHER ==
[~2024-12-30] VITALS: Ht 180.3 cm; Wt 88.5 kg
[2024-12-30 15:29] LABS: BASOPHILS ABSOLUTE AUTO 0.12 K/mm3 (0.00-0.23); BASOPHILS PERCENT AUTO 1 % (0-2); EOSINOPHILS ABSOLUTE AUTO 0.09 K/mm3 (0.00-0.68); EOSINOPHILS PERCENT AUTO 1 % (0-6); Hematocrit 43.9 % (37.0-53.0); Hemoglobin 14.9 g/dL (13.5-17.5); IMMATURE GRAN ABSOLUTE AUTO 0.06 K/mm3 (0.00-0.10); IMMATURE GRAN PERCENT AUTO 1 % (0-1); LYMPHOCYTES ABSOLUTE AUTO 1.12 K/mm3 (0.84-5.20); LYMPHOCYTES PERCENT AUTO 11 % (21-46); MONOCYTES ABSOLUTE AUTO 0.64 K/mm3 (0.16-1.47); MONOCYTES PERCENT AUTO 6 % (4-13); Mean Corpuscular HGB Conc 33.9 g/dL (31.5-36.5); Mean Corpuscular Volume 93 fL (80-100); NEUTROPHILS ABSOLUTE AUTO 8.33 K/mm3 (1.96-9.15); NEUTROPHILS PERCENT AUTO 80 % (41-73); NRBC ABSOLUTE 0.00 K/mm3 (0.00-0.02); NRBC Auto 0.0 /100 WBC (0.0-0.2); Platelet Count 442 K/mm3 (150-400); RDW Coefficient Variation 13.2 % (11.7-14.2); RDW Standard Deviation 45.5 fL (35.1-46.3)
[2024-12-30 16:07] LABS: Alanine Aminotransfer (ALT/SGP 26.0 U/L (12-78); Albumin, Blood 4.1 g/dL (3.4-5.0); Albumin/Globulin Ratio 1.1 (0.8-1.8); Anion Gap 12.0 mmol/L (3-11); Aspartate Aminotrans (AST/SGOT 14.0 U/L (12-37); Bilirubin, Total 0.8 mg/dL (0.1-1.0); Blood Urea Nitrogen 19.0 mg/dL (8-24); CO2, Blood 26.0 mmol/L (21-32); Calcium, Blood 9.5 mg/dL (8.5-10.1); Chloride, Blood 95.0 mmol/L (98-108); Creatinine, Blood 0.88 mg/dL (0.60-1.20); Globulin, Blood 3.7 g/dL (2.2-4.0); Glucose, Blood 444.0 mg/dL (70-99); Potassium, Blood 4.6 mmol/L (3.5-5.5); Sodium, Blood 128.0 mmol/L (136-145); Total Protein, Blood 7.8 g/dL (6.4-8.2)
[2024-12-30 16:34] VITALS: BP 152/81
== END 2024-12-30 16:35 | disposition home or self-care (01) ==
LOC: ER 13:39
PROVIDERS: Emergency Medicine
DX: E10.65 Type 1 diabetes mellitus with hyperglycemia (principal); Z79.899 Other long term (current) drug therapy; Z87.891 Personal history of nicotine dependence
CPT/HCPCS: 80053; 82947; 85025; 99284